=== PATIENT | male | born 1980 | race Caucasian/White ===

== ENCOUNTER 2017-02-21 20:23 | Inpatient (IN) | payer SELFPAY ==
[~2017-02-21] VITALS: Ht 182.9 cm; Wt 104.3 kg
[2017-02-21] MEDS ORDERED: LURA80 PO (20:42)
[2017-02-21] MEDS ORDERED: VIST50 PO (20:42)
[2017-02-21] MEDS ORDERED: DIVA500T35 PO (20:42)
[2017-02-22] MEDS ORDERED: LORazepam 2 MG TABLET PO PRN
[2017-02-22] MEDS ORDERED: ZOLPIDEM TARTRATE 10 MG TABLET PO PRN
[2017-02-22] MEDS ORDERED: HALOPERIDOL 5 MG TABLET PO PRN
[2017-02-22 01:44] VITALS: BP 135/90
[2017-02-22] MEDS ORDERED: PNEUMOCOCCAL VACCINE POLYVALENT 0.5 ML VIAL [PPSV23] IM ONE (01:45)
[2017-02-22 10:25] VITALS: BP 166/66
[2017-02-22] MEDS ORDERED: CloNIDine HCL 0.1 MG TABLET PO PRN (13:00)
[2017-02-22 16:34] VITALS: BP 134/82
[2017-02-23 08:00] VITALS: BP 126/76
[2017-02-23] MEDS: RisperiDONE 1 MG TABLET PO SCH ×2 (09:08→16:39)
[2017-02-23] MEDS: LITHIUM CARBONATE 300 MG CAPSULE PO SCH ×2 (09:08→16:39)
[2017-02-23 17:12] VITALS: BP 121/54
[2017-02-24] MEDS: RisperiDONE 1 MG TABLET PO SCH ×2 (09:00→17:59)
[2017-02-24] MEDS: LITHIUM CARBONATE 300 MG CAPSULE PO SCH ×2 (09:00→17:59)
[2017-02-24 09:18] VITALS: BP 116/54
[2017-02-24 19:09] VITALS: BP 132/89
[2017-02-25 08:49] VITALS: BP 117/69
[2017-02-25] MEDS: LITHIUM CARBONATE 300 MG CAPSULE PO SCH (09:39)
[2017-02-25] MEDS: RisperiDONE 1 MG TABLET PO SCH (09:39)
[2017-02-25] MEDS ORDERED: RISP1 PO (12:04)
[2017-02-25] MEDS ORDERED: LITH300C3 PO (12:05)
== END 2017-02-25 13:20 | disposition home or self-care (01) | DRG 885 ==
LOC: EMS 20:25 → 3EI 02-22 00:48
PROVIDERS: ADMIT Psychiatry & Neurology Psychiatry; ATTEND Psychiatry & Neurology Psychiatry
PROC: 3E0234Z Introduction of Serum, Toxoid and Vaccine into Muscle, Percutaneous Approach (ICD-10-PCS; principal; 2017-02-22)
DX: F25.9 Schizoaffective disorder, unspecified (principal); F14.90 Cocaine use, unspecified, uncomplicated; F43.10 Post-traumatic stress disorder, unspecified; I10 Essential (primary) hypertension; F15.90 Other stimulant use, unspecified, uncomplicated; F17.200 Nicotine dependence, unspecified, uncomplicated; Z23 Encounter for immunization; Z79.899 Other long term (current) drug therapy
CPT/HCPCS: 99285

== ENCOUNTER 2018-11-07 13:50 | Emergency (ER) | payer MEDICAID, OTHER ==
[~2018-11-07] VITALS: Ht 182.9 cm; Wt 95.5 kg
[~2018-11-07 13:50] MED LIST: LITH300C3 PO; RISP1 PO
[2018-11-07] MEDS ORDERED: CefTRIAXone SODIUM 1 GM/VIAL IM ONE (15:15)
[2018-11-07] MEDS ORDERED: LIDOCAINE/PF 1% 2 ML VIAL IM ONE (15:15)
[2018-11-07 15:56] VITALS: BP 144/87
[2018-11-07] MEDS ORDERED: RISP1 PO (18:17)
[2018-11-07] MEDS ORDERED: LITH300C3 PO (18:17)
== END 2018-11-07 16:38 | disposition home or self-care (01) ==
LOC: EMS 13:51
DX: N39.0 Urinary tract infection, site not specified (principal); R03.0 Elevated blood-pressure reading, without diagnosis of hypertension; F14.10 Cocaine abuse, uncomplicated; F12.10 Cannabis abuse, uncomplicated; F15.10 Other stimulant abuse, uncomplicated; F31.9 Bipolar disorder, unspecified; I10 Essential (primary) hypertension
CPT/HCPCS: 81002; 96372; 99283; J0696; J3490

== ENCOUNTER 2018-11-07 17:55 | Emergency (ER) | payer SELFPAY ==
[~2018-11-07] VITALS: Ht 182.9 cm; Wt 113.6 kg
[2018-11-07] MEDS ORDERED: LITH300C3 PO (18:17)
[2018-11-07] MEDS ORDERED: RISP1 PO (18:17)
[2018-11-07 19:57] VITALS: BP 163/108
== END 2018-11-07 20:40 | disposition left against medical advice (07) ==
LOC: EMS 17:57
DX: R07.9 Chest pain, unspecified (principal); F31.9 Bipolar disorder, unspecified; I10 Essential (primary) hypertension; F14.90 Cocaine use, unspecified, uncomplicated; F12.90 Cannabis use, unspecified, uncomplicated; F15.90 Other stimulant use, unspecified, uncomplicated; Z79.899 Other long term (current) drug therapy
CPT/HCPCS: 93005

== ENCOUNTER 2018-11-11 20:27 | Inpatient (IN) | payer MEDICAID ==
[~2018-11-11] VITALS: Ht 182.9 cm; Wt 112.9 kg
[2018-11-12] MEDS ORDERED: LORazepam 2 MG/ML VIAL ONE (00:35)
[2018-11-12] MEDS ORDERED: HALOPERIDOL LACTATE 5 MG/ML VIAL ONE (00:35)
[2018-11-12] MEDS ORDERED: DiphenhydrAMINE HCL 50 MG/ML VIAL ONE (00:35)
[2018-11-12] MEDS ORDERED: LORazepam 2 MG/ML VIAL IM ONE (00:45)
[2018-11-12] MEDS ORDERED: HALOPERIDOL LACTATE 5 MG/ML VIAL IM ONE (00:45)
[2018-11-12] MEDS ORDERED: DiphenhydrAMINE HCL 50 MG/ML VIAL IM ONE (00:45)
[2018-11-12 01:19] LABS: AMPHET/METH SCREEN,URINE POSITIVE (NEGATIVE); BARBITURATE SCREEN, URINE NEGATIVE (NEGATIVE); BENZODIAZEPINES SCREEN,URINE NEGATIVE (NEGATIVE); CANNABINOID SCREEN,URINE NEGATIVE (NEGATIVE); COCAINE SCREEN,URINE NEGATIVE (NEGATIVE); METHADONE SCREEN, URINE NEGATIVE (NEGATIVE); OPIATE SCREEN,URINE NEGATIVE (NEGATIVE)
[2018-11-12 01:21] LABS: PHENCYCLIDINE SCREEN,URINE NEGATIVE (NEGATIVE)
[2018-11-12 01:29] LABS: BASOPHILS % (AUTO) 0.9 % (0.0-2.0); EOSINOPHILS % (AUTO) 1.7 % (1.0-6.0); HEMATOCRIT 40.5 % (41-53); HEMOGLOBIN 13.7 g/dL (13.5-17.5); LYMPHOCYTES # (AUTO) 2.1 K/uL (1.0-4.8); LYMPHOCYTES % (AUTO) 27.1 % (22.0-44.0); MEAN CORPUSCULAR HEMOGLOBIN 31.7 pg (26.0-34.0); MEAN CORPUSCULAR HGB CONC 33.8 G/dL (31.0-37.0); MEAN CORPUSCULAR VOLUME 94 fL (80-100); MONOCYTES # (AUTO) 0.5 K/uL (0.1-1.0); NEUTROPHILS # (AUTO) 4.8 K/uL (1.8-7.7); NEUTROPHILS % (AUTO) 63.3 % (40.0-70.0); PLATELET COUNT (AUTO) 334 K/uL (150-450); RED BLOOD CELL COUNT(AUTO) 4.32 MIL/uL (4.50-5.90); RED CELL DISTRIBUTION WIDTH 13.4 % (11.5-14.5)
[2018-11-12 01:38] LABS: ANION GAP 12 mmol/L (8-16); CALCIUM, TOTAL 8.5 mg/dL (8.8-10.5); CARBON DIOXIDE 23 mmol/L (22-29); CHLORIDE 106 mmol/L (98-107); CREATININE 1.55 mg/dL (0.60-1.30); GLOMERULAR FILTR. RATE CALC 50 mL/min (>60); GLUCOSE,RANDOM 148 mg/dL (70-110); POTASSIUM 3.5 mmol/L (3.5-5.1); SODIUM SERUM 141 mmol/L (136-145); UREA NITROGEN, BLOOD 13 mg/dL (7-18)
[2018-11-12 02:02] LABS: ALANINE AMINOTRANSFERASE 31 U/L (12-78); ALBUMIN 3.9 g/dL (3.4-5.0); ALKALINE PHOSPHATASE 119 U/L (46-116); ASPARTATE AMINOTRANSFERASE 28 U/L (15-37); BILIRUBIN,TOTAL 0.4 mg/dL (0.1-1.0); CREATINE KINASE, TOTAL ONLY 847 U/L (39-308)
[2018-11-12] MEDS ORDERED: LORazepam 2 MG TABLET PO PRN (05:30)
[2018-11-12] MEDS ORDERED: ZOLPIDEM TARTRATE 10 MG TABLET PO PRN (05:30)
[2018-11-12] MEDS ORDERED: OLANZapine 5 MG RAPDIS TABLET PO PRN (05:30)
[2018-11-12] MEDS ORDERED: PERTUSS(ACELL),DIPH,TET VAC/PF 0.5 ML VIAL IM ONE (07:15)
[2018-11-12 09:30] VITALS: BP 137/78
[2018-11-12 13:21] VITALS: BP 137/78
[2018-11-12 16:15] VITALS: BP 129/85
[2018-11-12 16:30] VITALS: BP 129/85
[2018-11-12] MEDS ORDERED: MAG HYDROX/AL HYDROX/SIMETH ES 30 ML SUSPENSION UDCUP PO PRN (17:30)
[2018-11-12] MEDS ORDERED: LOPERAMIDE HCL 2 MG CAPSULE PO PRN (17:30)
[2018-11-12] MEDS ORDERED: HydrOXYzine PAMOATE 50 MG CAPSULE PO PRN (17:30)
[2018-11-12] MEDS ORDERED: GuaiFENesin/D-METHORPHAN [SUGAR-FREE] 200-20MG/10 ML SYRUP UDCUP PO PRN (17:30)
[2018-11-12] MEDS ORDERED: MAGNESIUM HYDROXIDE SUSPENSION 30 ML UDCUP PO PRN (17:30)
[2018-11-12] MEDS ORDERED: TUBERCULIN, PURIFIED PROTEIN DERIVATIVE 5 TU/0.1 ML SYRINGE ID ONE (17:30)
[2018-11-12] MEDS ORDERED: PROMETHAZINE HCL 25 MG TABLET PO PRN (17:30)
[2018-11-12] MEDS ORDERED: ACETAMINOPHEN 325 MG TABLET PO PRN (17:30)
[2018-11-12] MEDS: DIVALPROEX SODIUM 500 MG ER TABLET PO SCH (20:27)
[2018-11-12] MEDS ORDERED: OLANZapine 5 MG RAPDIS TABLET PO SCH (21:00)
[2018-11-13] MEDS ORDERED: PNEUMOCOCCAL VACCINE POLYVALENT 0.5 ML VIAL [PPSV23] IM ONE (04:00)
[2018-11-13] MEDS ORDERED: INFLUENZA VIRUS VACCINE QVS 2019-20 (3YR+)/PF 60 MCG/0.5 ML SYRINGE IM ONE (04:00)
[2018-11-13 08:32] VITALS: BP 122/76
[2018-11-13] MEDS: FOLIC ACID 1 MG TABLET PO SCH (08:50)
[2018-11-13] MEDS: THIAMINE HCL 100 MG TABLET PO SCH ×2 (08:51→18:00)
[2018-11-13] MEDS: NALTREXONE HCL 50 MG TABLET PO SCH (08:51)
[2018-11-13] MEDS: MULTIVITAMINS WITH MINERALS, THERAPEUTIC TABLET PO SCH (08:52)
[2018-11-13] MEDS ORDERED: ONDANSETRON HCL 4 MG TABLET PO PRN (09:00)
[2018-11-13] MEDS ORDERED: BENZOCAINE/MENTHOL LOZENGE MM PRN (09:00)
[2018-11-13] MEDS ORDERED: CloNIDine HCL 0.1 MG TABLET PO PRN (09:00)
[2018-11-13] MEDS ORDERED: ALBUTEROL SULFATE HFA 90 MCG/PUFF 8 GM INHALER IH PRN (09:00)
[2018-11-13] MEDS ORDERED: BACITRACIN 28.4 GM OINTMENT TP PRN (09:00)
[2018-11-13] MEDS ORDERED: IBUPROFEN 600 MG TABLET PO PRN (09:00)
[2018-11-13] MEDS ORDERED: PETROLATUM,WHITE 28 GM JELLY TP PRN (09:00)
[2018-11-13] MEDS ORDERED: OLAN5TAB30 PO (13:51)
[2018-11-13] MEDS ORDERED: DIVA500T52 PO (13:51)
[2018-11-13] MEDS ORDERED: NALT50TA PO (13:51)
[2018-11-13 20:33] VITALS: BP 133/78
[2018-11-13] MEDS ORDERED: OLANZapine 10 MG RAPDIS TABLET PO SCH (21:00)
[2018-11-13] MEDS: DIVALPROEX SODIUM 500 MG ER TABLET PO SCH (21:00)
[2018-11-14] MEDS: NALTREXONE HCL 50 MG TABLET PO SCH (07:49)
[2018-11-14] MEDS: FOLIC ACID 1 MG TABLET PO SCH (07:49)
[2018-11-14] MEDS: THIAMINE HCL 100 MG TABLET PO SCH (07:49)
[2018-11-14] MEDS: MULTIVITAMINS WITH MINERALS, THERAPEUTIC TABLET PO SCH (07:50)
[2018-11-14] MEDS ORDERED: CEPH500 PO (10:22)
[2018-11-14] MEDS ORDERED: MULT-1239 PO (10:23)
[2018-11-14] MEDS ORDERED: FOLI1 PO (10:24)
[2018-11-14] MEDS ORDERED: THIA100T67 PO (10:24)
[2018-11-14] MEDS ORDERED: CEPHALEXIN MONOHYDRATE 500 MG CAPSULE PO SCH (13:00)
== END 2018-11-14 11:00 | disposition home or self-care (01) | DRG 750 ==
LOC: EMS 20:28 → 3EC 11-12 07:48
PROVIDERS: ADMIT Psychiatry & Neurology Psychiatry; ATTEND Psychiatry & Neurology Psychiatry
DX: F20.0 Paranoid schizophrenia (principal); Z59.0 Homelessness; E03.9 Hypothyroidism, unspecified; E66.9 Obesity, unspecified; Z68.33 Body mass index [BMI] 33.0-33.9, adult; F15.10 Other stimulant abuse, uncomplicated; F17.210 Nicotine dependence, cigarettes, uncomplicated; F43.10 Post-traumatic stress disorder, unspecified; X58.XXXA Exposure to other specified factors, initial encounter; Y93.89 Activity, other specified; Y92.89 Other specified places as the place of occurrence of the external cause; Y99.8 Other external cause status; F60.0 Paranoid personality disorder; G47.00 Insomnia, unspecified; I10 Essential (primary) hypertension; K59.00 Constipation, unspecified; N28.9 Disorder of kidney and ureter, unspecified; S61.219A Laceration without foreign body of unspecified finger without damage to nail, initial encounter; Z65.3 Problems related to other legal circumstances; Z91.19 Patient's noncompliance with other medical treatment and regimen; Z53.20 Procedure and treatment not carried out because of patient's decision for unspecified reasons
CPT/HCPCS: 93005; 96372; G0480; J1200; J1630; J2060

== ENCOUNTER 2018-11-19 04:22 | Emergency (ER) | payer MEDICAID ==
[~2018-11-19] VITALS: Ht 182.9 cm; Wt 109.1 kg
[~2018-11-19 04:22] MED LIST changes: +CEPH500 PO; +DIVA500T52 PO; +FOLI1 PO; +MULT-1239 PO; +NALT50TA PO; +OLAN5TAB30 PO; +THIA100T67 PO
[2018-11-19 04:56] LABS: BASOPHILS % (AUTO) 0.7 % (0.0-2.0); EOSINOPHILS % (AUTO) 2.3 % (1.0-6.0); HEMATOCRIT 40.8 % (41-53); HEMOGLOBIN 13.8 g/dL (13.5-17.5); LYMPHOCYTES # (AUTO) 1.9 K/uL (1.0-4.8); LYMPHOCYTES % (AUTO) 25.7 % (22.0-44.0); MEAN CORPUSCULAR HGB CONC 33.8 G/dL (31.0-37.0); MEAN CORPUSCULAR VOLUME 95 fL (80-100); MONOCYTES # (AUTO) 0.6 K/uL (0.1-1.0); MONOCYTES % (AUTO) 8.2 % (2.0-9.0); NEUTROPHILS # (AUTO) 4.6 K/uL (1.8-7.7); NEUTROPHILS % (AUTO) 63.1 % (40.0-70.0); PLATELET COUNT (AUTO) 346 K/uL (150-450); RED BLOOD CELL COUNT(AUTO) 4.31 MIL/uL (4.50-5.90); RED CELL DISTRIBUTION WIDTH 13.3 % (11.5-14.5)
[2018-11-19 05:05] LABS: ANION GAP 9 mmol/L (8-16); CALCIUM, TOTAL 9.1 mg/dL (8.8-10.5); CARBON DIOXIDE 27 mmol/L (22-29); CHLORIDE 107 mmol/L (98-107); GLOMERULAR FILTR. RATE CALC > 60 mL/min (>60); GLUCOSE,RANDOM 84 mg/dL (70-110); POTASSIUM 4.1 mmol/L (3.5-5.1); SODIUM SERUM 143 mmol/L (136-145); UREA NITROGEN, BLOOD 15 mg/dL (7-18)
[2018-11-19 05:11] LABS: ALANINE AMINOTRANSFERASE 51 U/L (12-78); ALKALINE PHOSPHATASE 116 U/L (46-116); ASPARTATE AMINOTRANSFERASE 29 U/L (15-37); BILIRUBIN,TOTAL 0.5 mg/dL (0.1-1.0); TOTAL PROTEIN, SERUM 7.4 g/dL (6.4-8.2)
[2018-11-19 09:15] LABS: APPEARANCE,URINE CLEAR (CLEAR); BILIRUBIN,URINE NEGATIVE (NEGATIVE); GLUCOSE, URINE (UA) NEGATIVE (NEGATIVE); KETONES,URINE NEGATIVE (NEGATIVE); LEUKOCYTE ESTERASE ,URINE NEGATIVE (NEGATIVE); NITRATE,URINE NEGATIVE (NEGATIVE); OCCULT BLOOD,URINE NEGATIVE (NEGATIVE); PH,URINE 5.5 (5.0-8.0); PROTEIN,URINE POS 1+ (NEGATIVE); UROBILINOGEN,URINE 0.2 mg/dL (<=1.0)
[2018-11-19 09:21] LABS: AMPHET/METH SCREEN,URINE POSITIVE (NEGATIVE); BARBITURATE SCREEN, URINE NEGATIVE (NEGATIVE); BENZODIAZEPINES SCREEN,URINE NEGATIVE (NEGATIVE); CANNABINOID SCREEN,URINE NEGATIVE (NEGATIVE); COCAINE SCREEN,URINE NEGATIVE (NEGATIVE); METHADONE SCREEN, URINE NEGATIVE (NEGATIVE); OPIATE SCREEN,URINE NEGATIVE (NEGATIVE); PHENCYCLIDINE SCREEN,URINE NEGATIVE (NEGATIVE)
[2018-11-19 09:32] LABS: BACTERIA,URINE None Seen /HPF (None Seen); RBC,URINE 0-2 /HPF (0-2); SQUAMOUS EPITHELIAL CELL,UR Rare /LPF (None Seen)
[2018-11-19] MEDS ORDERED: AZITHROMYCIN 250 MG TABLET PO ONE (10:00)
[2018-11-19 10:15] VITALS: BP 113/73
== END 2018-11-19 10:24 | disposition home or self-care (01) ==
LOC: EMS 04:22
DX: M79.672 Pain in left foot (principal); M79.671 Pain in right foot; R30.0 Dysuria; I10 Essential (primary) hypertension; F31.9 Bipolar disorder, unspecified; F43.10 Post-traumatic stress disorder, unspecified; E03.9 Hypothyroidism, unspecified; F14.90 Cocaine use, unspecified, uncomplicated; F12.90 Cannabis use, unspecified, uncomplicated; F15.90 Other stimulant use, unspecified, uncomplicated; Z79.899 Other long term (current) drug therapy
CPT/HCPCS: 36415; 80053; 80307; 81001; 85025; 99283; G0480

== ENCOUNTER 2018-11-26 13:05 | Inpatient (IN) | payer MEDICAID ==
[~2018-11-26] VITALS: Ht 182.9 cm; Wt 105.2 kg
[~2018-11-26 13:05] MED LIST changes: -CEPH500 PO; -LITH300C3 PO; -RISP1 PO
[2018-11-26 18:27] LABS: AMPHET/METH SCREEN,URINE POSITIVE (NEGATIVE); BARBITURATE SCREEN, URINE NEGATIVE (NEGATIVE); BENZODIAZEPINES SCREEN,URINE NEGATIVE (NEGATIVE); CANNABINOID SCREEN,URINE NEGATIVE (NEGATIVE); COCAINE SCREEN,URINE NEGATIVE (NEGATIVE); METHADONE SCREEN, URINE NEGATIVE (NEGATIVE); OPIATE SCREEN,URINE NEGATIVE (NEGATIVE); PHENCYCLIDINE SCREEN,URINE NEGATIVE (NEGATIVE)
[2018-11-26 18:58] LABS: EOSINOPHILS % (AUTO) 3.8 % (1.0-6.0); HEMATOCRIT 40.3 % (41-53); HEMOGLOBIN 13.6 g/dL (13.5-17.5); LYMPHOCYTES % (AUTO) 29.5 % (22.0-44.0); MEAN CORPUSCULAR HEMOGLOBIN 32.1 pg (26.0-34.0); MEAN CORPUSCULAR HGB CONC 33.7 G/dL (31.0-37.0); MEAN CORPUSCULAR VOLUME 95 fL (80-100); MONOCYTES # (AUTO) 0.6 K/uL (0.1-1.0); MONOCYTES % (AUTO) 9.3 % (2.0-9.0); NEUTROPHILS # (AUTO) 3.8 K/uL (1.8-7.7); NEUTROPHILS % (AUTO) 56.4 % (40.0-70.0); PLATELET COUNT (AUTO) 350 K/uL (150-450); RED BLOOD CELL COUNT(AUTO) 4.24 MIL/uL (4.50-5.90); RED CELL DISTRIBUTION WIDTH 13.6 % (11.5-14.5)
[2018-11-26 19:10] LABS: ANION GAP 6 mmol/L (8-16); CARBON DIOXIDE 29 mmol/L (22-29); CHLORIDE 104 mmol/L (98-107); CREATININE 1.11 mg/dL (0.60-1.30); GLOMERULAR FILTR. RATE CALC > 60 mL/min (>60); GLUCOSE,RANDOM 85 mg/dL (70-110); POTASSIUM 3.8 mmol/L (3.5-5.1); SODIUM SERUM 139 mmol/L (136-145); UREA NITROGEN, BLOOD 14 mg/dL (7-18)
[2018-11-26 19:18] LABS: ALANINE AMINOTRANSFERASE 32 U/L (12-78); ALBUMIN 3.7 g/dL (3.4-5.0); ALKALINE PHOSPHATASE 116 U/L (46-116); ASPARTATE AMINOTRANSFERASE 21 U/L (15-37); BILIRUBIN,TOTAL 0.5 mg/dL (0.1-1.0); TOTAL PROTEIN, SERUM 6.8 g/dL (6.4-8.2)
[2018-11-26 19:19] LABS: VALPROIC ACID < 3 mcg/mL (50-100)
[2018-11-26] MEDS ORDERED: HALOPERIDOL 5 MG TABLET PO PRN (22:15)
[2018-11-26] MEDS ORDERED: ZOLPIDEM TARTRATE 10 MG TABLET PO PRN (22:15)
[2018-11-26] MEDS ORDERED: LORazepam 2 MG/ML VIAL ONE (23:52)
[2018-11-26] MEDS ORDERED: HALOPERIDOL LACTATE 5 MG/ML VIAL ONE (23:53)
[2018-11-26] MEDS ORDERED: DiphenhydrAMINE HCL 50 MG/ML VIAL ONE (23:53)
[2018-11-27] MEDS ORDERED: DiphenhydrAMINE HCL 50 MG/ML VIAL IM ONE
[2018-11-27] MEDS ORDERED: LORazepam 2 MG/ML VIAL IM ONE
[2018-11-27] MEDS ORDERED: HALOPERIDOL LACTATE 5 MG/ML VIAL IM ONE
[2018-11-27 02:06] VITALS: BP 117/73
[2018-11-27] MEDS ORDERED: MAGNESIUM HYDROXIDE SUSPENSION 30 ML UDCUP PO PRN (03:15)
[2018-11-27] MEDS ORDERED: GuaiFENesin/D-METHORPHAN [SUGAR-FREE] 200-20MG/10 ML SYRUP UDCUP PO PRN (03:15)
[2018-11-27] MEDS ORDERED: CloNIDine HCL 0.1 MG TABLET PO PRN (03:15)
[2018-11-27] MEDS ORDERED: MAG HYDROX/AL HYDROX/SIMETH ES 30 ML SUSPENSION UDCUP PO PRN (03:15)
[2018-11-27] MEDS ORDERED: IBUPROFEN 400 MG TABLET PO PRN (03:15)
[2018-11-27] MEDS ORDERED: ALBUTEROL SULFATE HFA 90 MCG/PUFF 8 GM INHALER IH PRN (03:15)
[2018-11-27] MEDS ORDERED: NICOTINE 14 MG/24 HOUR PATCH TD PRN (03:15)
[2018-11-27] MEDS ORDERED: LOPERAMIDE HCL 2 MG CAPSULE PO PRN (03:15)
[2018-11-27] MEDS ORDERED: DOCUSATE SODIUM 100 MG CAPSULE PO PRN (03:15)
[2018-11-27] MEDS ORDERED: ACETAMINOPHEN 325 MG TABLET PO PRN (03:15)
[2018-11-27] MEDS ORDERED: ONDANSETRON HCL 4 MG TABLET PO PRN (03:15)
[2018-11-27] MEDS ORDERED: PETROLATUM,WHITE 28 GM JELLY TP PRN (03:15)
[2018-11-27] MEDS ORDERED: PNEUMOCOCCAL VACCINE POLYVALENT 0.5 ML VIAL [PPSV23] IM ONE (03:45)
[2018-11-27] MEDS ORDERED: INFLUENZA VIRUS VACCINE QVS 2019-20 (3YR+)/PF 60 MCG/0.5 ML SYRINGE IM ONE (03:45)
[2018-11-27] MEDS: NALTREXONE HCL 50 MG TABLET PO SCH (10:15)
[2018-11-27 16:00] VITALS: BP 110/71
[2018-11-27] MEDS: OLANZapine 10 MG TABLET PO SCH (20:18)
[2018-11-27] MEDS: DIVALPROEX SODIUM 500 MG ER TABLET PO SCH (20:18)
[2018-11-27] MEDS: LORazepam 2 MG TABLET PO PRN (20:18)
[2018-11-28 08:00] VITALS: BP 137/83
[2018-11-28 08:18] LABS: BASOPHILS % (AUTO) 0.7 % (0.0-2.0); EOSINOPHILS % (AUTO) 2.6 % (1.0-6.0); HEMATOCRIT 45.8 % (41-53); HEMOGLOBIN 15.8 g/dL (13.5-17.5); LYMPHOCYTES # (AUTO) 1.6 K/uL (1.0-4.8); LYMPHOCYTES % (AUTO) 21.6 % (22.0-44.0); MEAN CORPUSCULAR HEMOGLOBIN 32.8 pg (26.0-34.0); MEAN CORPUSCULAR HGB CONC 34.6 G/dL (31.0-37.0); MEAN CORPUSCULAR VOLUME 95 fL (80-100); MONOCYTES # (AUTO) 0.5 K/uL (0.1-1.0); MONOCYTES % (AUTO) 6.9 % (2.0-9.0); NEUTROPHILS # (AUTO) 4.9 K/uL (1.8-7.7); NEUTROPHILS % (AUTO) 68.2 % (40.0-70.0); PLATELET COUNT (AUTO) 374 K/uL (150-450); RED BLOOD CELL COUNT(AUTO) 4.83 MIL/uL (4.50-5.90); RED CELL DISTRIBUTION WIDTH 13.3 % (11.5-14.5)
[2018-11-28 08:51] LABS: ALANINE AMINOTRANSFERASE 35 U/L (12-78); ALBUMIN 3.8 g/dL (3.4-5.0); ALKALINE PHOSPHATASE 128 U/L (46-116); ANION GAP 10 mmol/L (8-16); ASPARTATE AMINOTRANSFERASE 18 U/L (15-37); BILIRUBIN,TOTAL 0.3 mg/dL (0.1-1.0); CALCIUM, TOTAL 8.8 mg/dL (8.8-10.5); CARBON DIOXIDE 25 mmol/L (22-29); CHLORIDE 106 mmol/L (98-107); CHOL/HDL RATIO 3.5 (4.2-7.3); CHOLESTEROL 156 mg/dL (131-200); GLOMERULAR FILTR. RATE CALC > 60 mL/min (>60); GLUCOSE,RANDOM 98 mg/dL (70-110); HDL CHOLESTEROL 45 mg/dL (40-60); LDL CHOL (CALC.) 90 mg/dL (0-130); SODIUM SERUM 141 mmol/L (136-145); THYROID STIMULATING HORMONE 3.34 uIU/mL (0.36-3.74); TOTAL PROTEIN, SERUM 7.5 g/dL (6.4-8.2); TRIGLYCERIDES 104 mg/dL (15-150)
[2018-11-28 08:58] LABS: UREA NITROGEN, BLOOD 14 mg/dL (7-18)
[2018-11-28] MEDS: NALTREXONE HCL 50 MG TABLET PO SCH (09:16)
[2018-11-28 16:10] VITALS: BP 124/75
[2018-11-28] MEDS: LORazepam 2 MG TABLET PO PRN (20:39)
[2018-11-28] MEDS: DIVALPROEX SODIUM 500 MG ER TABLET PO SCH (20:39)
[2018-11-28] MEDS: OLANZapine 10 MG TABLET PO SCH (20:39)
[2018-11-29 06:19] VITALS: BP 119/76
[2018-11-29 08:24] VITALS: BP 134/67
[2018-11-29] MEDS: NALTREXONE HCL 50 MG TABLET PO SCH (08:39)
[2018-11-29 16:00] VITALS: BP 116/70
[2018-11-29] MEDS: LORazepam 2 MG TABLET PO PRN (16:56)
[2018-11-29] MEDS: OLANZapine 10 MG TABLET PO SCH (20:06)
[2018-11-29] MEDS: DIVALPROEX SODIUM 500 MG ER TABLET PO SCH (20:07)
[2018-11-30 06:29] VITALS: BP 117/72
[2018-11-30 08:28] VITALS: BP 121/72
[2018-11-30] MEDS: NALTREXONE HCL 50 MG TABLET PO SCH (09:04)
[2018-11-30 16:12] VITALS: BP 111/65
[2018-11-30] MEDS: OLANZapine 10 MG TABLET PO SCH (20:50)
[2018-11-30] MEDS: DIVALPROEX SODIUM 500 MG ER TABLET PO SCH (20:51)
[2018-11-30 23:11] VITALS: BP 120/71
[2018-12-01 00:11] VITALS: BP 118/75
[2018-12-01 08:27] VITALS: BP 108/71
[2018-12-01] MEDS: NALTREXONE HCL 50 MG TABLET PO SCH (09:15)
[2018-12-01 17:42] VITALS: BP 122/77
[2018-12-01] MEDS: DIVALPROEX SODIUM 500 MG ER TABLET PO SCH (20:37)
[2018-12-01] MEDS: OLANZapine 10 MG TABLET PO SCH (20:55)
[2018-12-02 08:30] VITALS: BP 130/77
[2018-12-02] MEDS: NALTREXONE HCL 50 MG TABLET PO SCH (09:51)
[2018-12-02] MEDS ORDERED: OLAN10TA6 PO (12:15)
[2018-12-02 16:00] VITALS: BP 126/67
[2018-12-02] MEDS: DIVALPROEX SODIUM 500 MG ER TABLET PO SCH (20:52)
[2018-12-02] MEDS: OLANZapine 10 MG TABLET PO SCH (20:52)
[2018-12-03] MEDS: NALTREXONE HCL 50 MG TABLET PO SCH (08:59)
[2018-12-03] MEDS ORDERED: FOLIC ACID 1 MG TABLET PO SCH (09:00)
[2018-12-03] MEDS ORDERED: MULTIVITAMINS WITH MINERALS, THERAPEUTIC TABLET PO SCH (09:00)
[2018-12-03] MEDS ORDERED: THIAMINE HCL 100 MG TABLET PO SCH (09:00)
[2018-12-03 09:23] VITALS: BP 126/62
== END 2018-12-03 10:43 | disposition home or self-care (01) | DRG 753 ==
LOC: EMS 13:07 → B3A 22:21
PROVIDERS: ADMIT Psychiatry & Neurology Psychiatry; ATTEND Psychiatry & Neurology Psychiatry
DX: F31.30 Bipolar disorder, current episode depressed, mild or moderate severity, unspecified (principal); R45.851 Suicidal ideations; E03.9 Hypothyroidism, unspecified; Z28.21 Immunization not carried out because of patient refusal; F14.90 Cocaine use, unspecified, uncomplicated; F12.90 Cannabis use, unspecified, uncomplicated; F15.90 Other stimulant use, unspecified, uncomplicated; F43.10 Post-traumatic stress disorder, unspecified; I10 Essential (primary) hypertension; F19.10 Other psychoactive substance abuse, uncomplicated; F10.10 Alcohol abuse, uncomplicated; Y90.9 Presence of alcohol in blood, level not specified
CPT/HCPCS: 83036; 84443; G0480; J1200; J1630; J2060

== ENCOUNTER 2020-11-23 09:09 | Emergency (ER) | payer MEDICAID, OTHER ==
[~2020-11-23] VITALS: Ht 177.8 cm; Wt 86.4 kg
[~2020-11-23 09:09] MED LIST changes: +DIVA-80 PO; -DIVA500T52 PO; -FOLI1 PO; -MULT-1239 PO; +OLAN10TA26 PO; -OLAN5TAB30 PO; -THIA100T67 PO
[2020-11-23 09:51] LABS: BASOPHILS % (AUTO) 0.4 % (0.0-2.0); EOSINOPHILS % (AUTO) 0.2 % (1.0-6.0); HEMATOCRIT 41.6 % (41-53); HEMOGLOBIN 13.9 g/dL (13.5-17.5); LYMPHOCYTES # (AUTO) 1.4 K/uL (1.0-4.8); MEAN CORPUSCULAR HEMOGLOBIN 31.3 pg (26.0-34.0); MEAN CORPUSCULAR HGB CONC 33.4 G/dL (31.0-37.0); MEAN CORPUSCULAR VOLUME 94 fL (80-100); MONOCYTES # (AUTO) 0.6 K/uL (0.1-1.0); MONOCYTES % (AUTO) 5.3 % (2.0-9.0); NEUTROPHILS # (AUTO) 9.6 K/uL (1.8-7.7); NEUTROPHILS % (AUTO) 82.1 % (40.0-70.0); PLATELET COUNT (AUTO) 314 K/uL (150-450); RED BLOOD CELL COUNT(AUTO) 4.44 MIL/uL (4.50-5.90); RED CELL DISTRIBUTION WIDTH 12.8 % (11.5-14.5)
[2020-11-23 10:09] LABS: ALANINE AMINOTRANSFERASE 39 U/L (12-78); ALBUMIN 4.2 g/dL (3.4-5.0); ALKALINE PHOSPHATASE 118 U/L (46-116); ANION GAP 10 mmol/L (8-16); ASPARTATE AMINOTRANSFERASE 23 U/L (15-37); BILIRUBIN,TOTAL 0.5 mg/dL (0.1-1.0); CALCIUM, TOTAL 9.2 mg/dL (8.8-10.5); CARBON DIOXIDE 24 mmol/L (22-29); CHLORIDE 105 mmol/L (98-107); GLOMERULAR FILTR. RATE CALC > 60 mL/min (>60); GLUCOSE,RANDOM 82 mg/dL (70-110); SODIUM SERUM 139 mmol/L (136-145); TOTAL PROTEIN, SERUM 7.6 g/dL (6.4-8.2); UREA NITROGEN, BLOOD 13 mg/dL (7-18)
[2020-11-23 10:10] LABS: VALPROIC ACID < 3 mcg/mL (50-100)
[2020-11-23 11:27] VITALS: BP 142/72
== END 2020-11-23 12:11 | disposition home or self-care (01) ==
LOC: EMS 09:09
DX: F31.9 Bipolar disorder, unspecified (principal); I10 Essential (primary) hypertension; E03.9 Hypothyroidism, unspecified; F17.210 Nicotine dependence, cigarettes, uncomplicated
CPT/HCPCS: 36415; 80053; 80164; 85025; 99285; G0480